=== PATIENT | male | born 1935 | race Caucasian/White ===

== ENCOUNTER → 2017-03-22 | Outpatient (CLI) | payer MEDICARE, OTHER ==
[~2017-03-22] MED LIST: ASPIR-TRIN325 MG PO; BENADRYL25 MG PO; BILBERRY100 MG PO; CEFTIN500 MG PO; CEFTRIAXON2 GM/50 M1 IV; CELEBREX200 MG PO; CEROVITE ADVANC1 TAB PO; CULTURELLE1 CAP PO; DILAUDID2 MG PO; DOXYCYCLINE HY100 MG PO; DULCOLAX10 MG RECTAL; ESCITALOPRAM OX10 MG PO; FLOMAX0.4 MG PO; LIPITOR20 MG PO; LOVENOX40 MG/0.4 SUBCUT; LUTEIN20 M1 PO; MAALOX ADVANCE355 ML PO; MIRALAX17 GM PO; NEURONTIN300 MG PO; NORVASC5 MG PO; PREDNISONE10 MG PO; PREDNISONE5 MG PO; SENNA-S TABLET1 EACH PO; TRAZODONE HCL100 MG PO; TRAZODONE HCL50 MG PO; VALIUM5 MG PO; VANCOMYCIN HCL500 MG IV; VOLTAREN25 MG PO; ZANTAC300 MG PO; ZYLOPRIM100 MG PO
== END | disposition short-term general hospital (02) ==
LOC: CLNEPH 10:21
DX: I12.9 Hypertensive chronic kidney disease with stage 1 through stage 4 chronic kidney disease, or unspecified chronic kidney disease (principal); N18.3 Chronic kidney disease, stage 3 (moderate); N17.9 Acute kidney failure, unspecified; E87.5 Hyperkalemia; M17.9 Osteoarthritis of knee, unspecified; M1A.09X0 Idiopathic chronic gout, multiple sites, without tophus (tophi); Z90.49 Acquired absence of other specified parts of digestive tract